=== PATIENT | male | born 1985 | race American Indian/Alaskan Native ===

== ENCOUNTER 2018-12-16 19:22 | Emergency (ER) | payer OTHER ==
[2018-12-16] MEDS ORDERED: GLUCAGEN IV ONE (19:28)
[2018-12-16] MEDS ORDERED: ATIVAN IV ONE (19:28)
[2018-12-16] MEDS ORDERED: NACL 0.9% 1000 ML 1,000 ML IV ONE (19:28)
[2018-12-16] MEDS ORDERED: NITROSTAT SL ONE (19:28)
--- NOTE | 2018-12-16 19:33 | Emergency Department Report ---
ED General Adult HPI - General Stated complaint: CHOKING Time Seen by Provider: 12/16/18 19:28 - History of Present Illness Initial comments: Patient is 33 years old male with no significant past medical history. Patient presented to the ER complaining of difficulty swallowing. Patient stated that he was eating ox tail and he felt a bone stuck in his throat. She stated that this is just happened one hour ago. Patient is spitting a lot. Patient denied any shortness of breath or chest pain. - Related Data Allergies Allergy/AdvReac Type Severity Reaction Status Date / Time No Known Allergies Allergy Unverified 10/26/15 04:15 ED Review of Systems ROS: Stated complaint: CHOKING Other details as noted in HPI Comment: All other systems reviewed and negative Constitutional: denies: chills, fever Respiratory: denies: cough, orthopnea, shortness of breath, SOB with exertion Gastrointestinal: denies: abdominal pain, nausea, vomiting, diarrhea, constipation, hematemesis, hematochezia Neurological: denies: headache ED Past Medical Hx - Surgical History Additional Surgical History: L knee surgery - Social History Smoking Status: Never Smoker Substance Use Type: None ED Physical Exam - General General appearance: alert, in no apparent distress - Head Head exam: Present: atraumatic, normocephalic, normal inspection - Eye Eye exam: Present: normal appearance - ENT ENT exam: Present: normal exam, normal orophraynx, mucous membranes moist - Neck Neck exam: Present: normal inspection, full ROM. Absent: tenderness, meningismus, lymphadenopathy, thyromegaly - Respiratory Respiratory exam: Present: normal lung sounds bilaterally - Cardiovascular Cardiovascular Exam: Present: regular rate, normal rhythm, normal heart sounds - GI/Abdominal GI/Abdominal exam: Present: soft, normal bowel sounds. Absent: distended, tenderness, guarding, rebound, rigid, organomegaly, mass, bruit, pulsatile mass, hernia - Extremities Exam Extremities exam: Present: normal inspection, full ROM, normal capillary refill - Back Exam Back exam: Present: normal inspection, full ROM. Absent: CVA tenderness (R), CVA tenderness (L) - Neurological Exam Neurological exam: Present: alert, oriented X3, CN II-XII intact - Skin Skin exam: Present: warm, intact, normal color ED Course Vital Signs 12/16/18 12/16/18 12/16/18 19:28 19:56 21:58 Temperature 97.4 F L Pulse Rate 95 H 80 72 Respiratory 17 22 16 Rate Blood Pressure Blood Pressure 138/75 126/72 135/65 [Right] O2 Sat by Pulse 99 98 98 Oximetry 12/17/18 12/17/18 00:11 00:20 Temperature 98.8 F 98.8 F Pulse Rate 90 90 Respiratory 16 16 Rate Blood Pressure 131/77 131/77 Blood Pressure [Right] O2 Sat by Pulse 98 98 Oximetry ED Medical Decision Making - Lab Data Result diagrams: 12/16/18 20:07 12/16/18 20:07 - Radiology Data Radiology results: report reviewed - Medical Decision Making Patient is 33 years old male with no significant past medical history. Patient presented to the ER complaining of difficulty swallowing. Patient stated that he was eating ox tail and he felt a bone stuck in his throat. She stated that this is just happened one hour ago. Patient is spitting a lot. Patient denied any shortness of breath or chest pain. Patient received Ativan, nitroglycerin, glucagon was no improvement. CT soft tissue neck showed a foreign body in the proximal esophagus. I discussed the patient is Dr. Adrien Smalls, he stated that he found his way to examine the patient for emergency endoscopy. Patient returned from endoscopy lab. Patient is alert, oriented 3 in no acute distress. Patient is advised to follow with his primary care physician in the next 2-3 days and to return to the ER if having new symptoms. Patient advised to start with a soft diet and advance as tolerated. Critical Care Time: Yes Critical care time in (mins) excluding proc time.: 30 Critical care attestation.: If time is entered above; I have spent that time in minutes in the direct care of this critically ill patient, excluding procedure time. ED Disposition Clinical Impression: Foreign body in esophagus Disposition: DC-01 TO HOME OR SELFCARE Is pt being admited?: No Condition: Stable Instructions: Foreign Body Ingestion (ED), Moderate Sedation (ED) Referrals: LIZBETH CALVIN MD [Primary Care Provider] - 3-5 Days
[2018-12-16] MEDS ORDERED: WATER FOR INJ Sterile (PF) 0 ML ONE (19:37)
[2018-12-16 20:30] LABS: Basophils % (Auto) 0.5 % (0.0-1.8); Eosinophils # (Auto) 0.1 K/mm3 (0.0-0.4); Eosinophils % (Auto) 3.6 % (0.0-4.3); Hematocrit 44.1 % (35.5-45.6); Hemoglobin 15.1 gm/dl (11.8-15.2); Lymphocytes # (Auto) 1.3 K/mm3 (1.2-5.4); Lymphocytes % (Auto) 41.1 % (13.4-35.0); Mean Corpuscular HGB Conc 34 % (32-34); Mean Corpuscular Volume 88 fl (84-94); Monocytes # (Auto) 0.3 K/mm3 (0.0-0.8); Monocytes % (Auto) 8.5 % (0.0-7.3); Platelet Count 147 K/mm3 (140-440); Red Blood Count 5.01 M/mm3 (3.65-5.03); Red Cell Distribution Width 14.2 % (13.2-15.2)
[2018-12-16 20:40] LABS: BUN/Creatinine Ratio 9; Blood Urea Nitrogen 13 mg/dL (9-20); Calcium 8.8 mg/dL (8.4-10.2); Hemolysis Index 11
--- NOTE | 2018-12-16 21:28 | Cat Scan Report ---
PROCEDURE: CT neck without contrast. TECHNIQUE: Computerized tomography of the soft tissue neck was performed without contrast material. This study is performed without intravascular contrast material and its sensitivity for pathology, in cluding neoplasms, inflammation, abscess, free fluid, thrombosis, and arterial dissection, is reduced compared with a contrast enhanced study. CT DOSE LENGTH PRODUCT: Not provided mGycm HISTORY: foreign body in the esophagus. COMPARISONS: None. FINDINGS: The nasopharynx, oropharynx and hypopharynx appear normal. The larynx appears normal. The thyroid gla nd is normal in size. There is a dense thin object in the proximal esophagus. This is located at the level of the larynx. This has a slightly triangular shape. It could represent a bone. It measures julio roximately 2.4 cm in overall length and approximately 1.3 cm in maximum width. There are no signs of perforation. Referral to a psychiatry teacher is recommended. The parotid and submandibular salivary glands appear normal. There is no cervical adenopathy. The bones appear intact. The mastoid air cells and paranasal sinuses are well aerated as far as visualized. IMPRESSION: Dense, thin slightly triangular-shaped foreign body in the proximal esophagus. This document is electronically signed by Ronal Matute MD., December 16 2018 10:26:32 PM ET
[2018-12-16] MEDS ORDERED: XYLOCAINE 2% INFILTRATI ONE (23:32)
[2018-12-16] MEDS ORDERED: VERSED ONE (23:32)
[2018-12-16] MEDS ORDERED: ZOFRAN ONE (23:32)
[2018-12-16] MEDS ORDERED: DIPRIVAN 10 MG/ML IV ONE ×2 (23:32→23:40)
--- NOTE | 2018-12-16 23:42 | Gastroenterology Consultation ---
History of Present Illness - Reason for Consult Consult date: 12/16/18 esophageal foreign body Requesting physician: JARROD VANN - History of Present Illness The patient is a pleasant 33-year-old gentleman with no known medical history who presents with bone in his esophagus. He reports that at her proximally 6:30 PM tonight he was eating lisa greens and beef when he swallowed the beef he did not realize there was a bone in it. He felt it get stuck in his upper chest/lower neck area. Since then he has had severe pressure and discomfort and inability to swallow and he is additionally spitting up his own secretions. No alleviating or exacerbating factors onset was acute this has never happened before no history of dysphagia or difficulty with swallowing in the past Medical history none Rectal history knee surgery Home medications none medications reconciled and updated Allergies no known drug allergies History no family history of esophageal dysmotility esophageal cancer or esophageal dysfunction Social history denies tobacco use Medications and Allergies Allergies Allergy/AdvReac Type Severity Reaction Status Date / Time No Known Allergies Allergy Unverified 10/26/15 04:15 Review of Systems - Review of Systems All systems: negative (except as mentioned above in the HPI) Exam - Constitutional Vital Signs: Temp Pulse Resp BP Pulse Ox 97.4 F L 72 16 135/65 98 12/16/18 19:56 12/16/18 21:58 12/16/18 21:58 12/16/18 21:58 12/16/18 21:58 General appearance: other (uncomfortable, spitting up his secretions) - EENT ENT: hearing intact - Neck Neck: supple - Respiratory Respiratory effort: normal - Cardiovascular Rhythm: regular Heart Sounds: Present: S1 & S2 - Gastrointestinal General gastrointestinal: Present: soft - Integumentary Integumentary: Present: warm, dry - Musculoskeletal Musculoskeletal: normal - Neurologic Neurological: alert and oriented x3 - Psychiatric Psychiatric: appropriate mood/affect - Labs CBC & Chem 7: 12/16/18 20:07 12/16/18 20:07 Lab Results: Laboratory Results - last 24 hr 12/16/18 12/16/18 20:07 20:07 WBC 3.2 L RBC 5.01 Hgb 15.1 Hct 44.1 MCV 88 MCH 30 MCHC 34 RDW 14.2 Plt Count 147 Lymph % (Auto) 41.1 H Scott % (Auto) 8.5 H Eos % (Auto) 3.6 Baso % (Auto) 0.5 Lymph # 1.3 Scott # 0.3 Eos # 0.1 Baso # 0.0 Seg Neutrophils % 46.3 Seg Neutrophils # 1.5 L Sodium 143 Potassium 3.6 Chloride 105.1 Carbon Dioxide 26 Anion Gap 16 BUN 13 Creatinine 1.4 Estimated GFR > 60 BUN/Creatinine Ratio 9 Glucose 148 H Calcium 8.[address] results noted. Plan for emergency EGD to remove the foreign object and thereby hopefully prevent catastrophic esophageal perforation which would likely be the natural course of this foreign body ingestion without intervention. Reviewed procedure in detail with patient including RBA, will proceed with EGD Final recs regarding disposition based upon EGD results. - Patient Problems (1) Foreign body in esophagus Current Visit: Yes Status: Acute
[2018-12-16] MEDS ORDERED: WATER FOR IRRIG STERILE IR ONE (23:45)
[2018-12-16] MEDS ORDERED: NACL 0.9% 1000 ML 1,000 ML IV SCH (23:45)
--- NOTE | 2018-12-16 23:45 | Anesthesia Consultation ---
Anesthesia Consult and Med Hx Date of service: 12/16/18 - Airway Anesthetic Teeth Evaluation: Good ROM Head & Neck: Adequate Mental/Hyoid Distance: Adequate Mallampati Class: Class II Intubation Access Assessment: Probably Good - Pulmonary Exam CTA: Yes - Pre-Operative Health Status ASA Pre-Surgery Classification: ASA1, Emergency Proposed Anesthetic Plan: MAC
--- NOTE | 2018-12-16 23:46 | Anesthesia Day of Surgery ---
Anesthesia Day of Surgery - Day of Surgery Patient Examined: Yes Patient H&P Reviewed: Yes Patient is NPO: Yes Beta Blockers: No
--- NOTE | 2018-12-17 00:13 | Operative Report ---
Operative Report Operative Report: Date of service 11:50PM 12/16/18 SURGEON: Adrien Smalls MD EGD with foreign body removal REPORT PREOPERATIVE DIAGNOSIS and POSTOPERATIVE DIAGNOSIS: esophageal foreign body ESTIMATED BLOOD LOSS: none DESCRIPTION OF PROCEDURE: A high-resolution EGD scope was passed through the oropharynx, esophagus, stomach, and second portion of duodenum. The scope was carefully withdrawn. Retroflexion was performed in the stomach. At the end of the procedure, the scope was cleaned using normal technique. Vital signs monitored continuously throughout. SEDATION: Provided by Anesthesiology Services. COMPLICATIONS: None. FINDINGS: * Large amount of food obscuring the duodenum and stomach so that views were limited. No gross abnormalities seen. * 3cm hiatal hernia * LA Grade B reflux esophagitis at the GE junction * Z line irregular at 39cm from the incisors * Thin, sharp foreign object, consistent with a bone shard, in the mid esophagus, about 2cm long and 10mm wide at the wide end but it tapered down to about 4mm wide at the narrow end. The object was grasped securely using rat tooth snare and very carefully withdrawn. The gyn physician was lost when the object contacted the bite block, the object however was rapidly secured and retrieved without complication. * There was moderate localized esophagitis in the mid esophagus but no perforation and no full thickness damage RECOMMENDATIONS: * Soft mechanical diet for the next 3 days then may resume regular diet * GERD lifestyle modification * May see me in the office as needed * Safe for discharge home once discharge criteria met from a post-procedure standpoint
[2018-12-17 01:24] VITALS: BP 128/84
== END 2018-12-17 02:02 | disposition home or self-care (01) ==
LOC: ED 19:22
DX: T18.128A Food in esophagus causing other injury, initial encounter (principal); X58.XXXA Exposure to other specified factors, initial encounter; Y93.89 Activity, other specified; Y92.89 Other specified places as the place of occurrence of the external cause; Y99.8 Other external cause status
CPT/HCPCS: 36415; 43247; 70490; 80048; 85025; 96374; 96375; 99291; J1610; J2060; J2250; J2405; J2704; J7030; 96361